=== PATIENT | male | born 1990 | race Caucasian/White ===

== ENCOUNTER 2022-03-15 09:13 | Emergency (ER) | payer OTHER | END 2022-03-15 10:35 | disposition home or self-care (01) | LOC: NAV ERS 09:13 | DX: S43.401A Unspecified sprain of right shoulder joint, initial encounter (principal); S80.212A Abrasion, left knee, initial encounter; I10 Essential (primary) hypertension; Z79.899 Other long term (current) drug therapy; W19.XXXA Unspecified fall, initial encounter ==